=== PATIENT | male | born 1955 | race Two or more races ===

== ENCOUNTER 2018-08-01 08:23 | Day surgery (SDC) | payer MEDICARE, MEDICAID ==
[2018-08-01] VITALS (11 sets, daily range): BP systolic 118–147; BP diastolic 54–85
[~2018-08-01] VITALS: Ht 180.3 cm; Wt 104.3 kg
[2018-08-01] MEDS ORDERED: ASPIRIN81 MG ORAL (09:06)
[2018-08-01] MEDS ORDERED: OMEPRAZOLE20 M2 ORAL (09:06)
[2018-08-01] MEDS ORDERED: BENAZEPRIL HCL10 MG ORAL (09:06)
[2018-08-01] MEDS ORDERED: ATORVASTATIN CA20 MG ORAL (09:06)
[2018-08-01] MEDS ORDERED: ALLOPURINOL100 M1 ORAL (09:06)
[2018-08-01] MEDS ORDERED: AMLODIPINE BESYL5 MG ORAL (09:06)
[2018-08-01] MEDS ORDERED: ATENOLOL50 MG ORAL (09:06)
--- NOTE | 2018-08-01 09:10 | NUR ---
IV LR WAS STARTED BY JONNIE RIVERAOPS RN. NO S/S OF INFILTRATION.
[2018-08-01] MEDS ORDERED: Lidocaine 1% MPF 10mg/ml 5ml ONE (09:22)
[2018-08-01] MEDS ORDERED: fentaNYL 100 mcg/2 mL IV ONE ×2 (09:22→10:37)
[2018-08-01] MEDS ORDERED: Midazolam 2mg/2ml Inj ONE (09:22)
[2018-08-01] MEDS ORDERED: Propofol 200mg/20ml IV ONE (09:22)
[2018-08-01] MEDS ORDERED: Bupivacaine w/Epi 0.5% 30ml Vial INJ ONE (09:32)
[2018-08-01] MEDS ORDERED: Succinylcholine 20mg/ml 10ml vial ONE (09:34)
[2018-08-01] MEDS ORDERED: Zemuron 50mg/5ml Inj IV ONE (09:34)
[2018-08-01] MEDS ORDERED: Sterile Water Irrig 1000ml IRRIG ONE (10:00)
[2018-08-01] MEDS ORDERED: NS Irrig 1000ml ONE (10:00)
[2018-08-01] MEDS ORDERED: LR 1000ml ONE (10:00)
--- NOTE | 2018-08-01 10:03 | Anethesia Preoperative Eval ---
Anesthesia Pre-op PMH/ROS General Date of Evaluation: Aug 01, 2018 Time of Evaluation: 09:50 Anesthesiologist: Melany Sheth CRNA ASA Score: ASA 3 Mallampati Score Class I : Soft palate, uvula, fauces, pillars visible Class II: Soft palate, uvula, fauces visible Class III: Soft palate, base of uvula visible Class IV: Only hard plate visible Mallampati Classification: Class III Surgeon: Laine Diagnosis: LEFT hydrocele Surgical Procedure: LEFT hydrocelectomy Anesthesia History: none Family History: no anesthesia problems Allergies: Coded Allergies: No Known Allergies (Unverified , 08/01/18) Medications: see eMAR Patient NPO?: Yes NPO Date: Aug 01, 2018 NPO Time: 00:00 Past Medical History Cardiovascular: Reports: HTN, CAD, other - s/p CABG 2012; hypercholesterolemia Pulmonary: Denies: asthma, COPD, GUI, other Gastrointestinal/Genitourinary: Reports: GERD; Denies: CRI, ESRD, other Neurologic/Psychiatric: Denies: dementia, CVA, depression/anxiety, TIA, other Endocrine: Reports: other - Gout; Denies: DM, hypothyroidism, steroids HEENT: Denies: cataract (L), cataract (R), glaucoma, EKUK (L), EKUK (R), other Hematology/Immune: Denies: anemia, DVT, bleeding disorder, other Musculoskeletal/Integumentary: Denies: OA, RA, DJD, DDD, edema, other Other: obesity PMH Narrative: as above PSxH Narrative: angioplasty, CABG Anesthesia Pre-op Phys. Exam Physician Exam Last Vital Signs Date Time Temp Pulse Resp B/P (MAP) Pulse Ox O2 Delivery O2 Flow Rate FiO2 08/01/18 09:23 97.9 52 20 147/85 97 Room Air Constitutional: NAD, other - morbidly obese Neurologic: CN 2-12 intact Cardiovascular: RRR Respiratory: CTA Gastrointestinal: S/NT/ND Airway Exam Mallampati Score: Class III MO: full Neck: short thick neck TMD: > 3 FB ROM: full Teeth: missing Dentures: no upper, no lower Anesthesia Pre-op A/P Labs reviewed, see chart Studies Pre-op Studies: EKG - SR, RIGHT precordial repolarization, LV ishemia, CXR - (B ) bases atelectic, mild cardiomegaly, sternal wires Risk Assessment & Plan Assessment: ASA 3, ok to proceed Plan: GETA Status Change Before Surgery: No Pre-Antibiotics Drug: Melany Doe CRNA Aug 01, 2018 10:03
[2018-08-01] MEDS ORDERED: NS Irrig 1000ml IRRIG ONE (10:11)
--- NOTE | 2018-08-01 10:33 | Pre-Procedure Note/Attestation ---
Pre-Procedure Note/Attestation Complete Prior to Procedure Planned Procedure: left Procedure Narrative: Left Hydrocelectomy Indications for Procedure Pre-Operative Diagnosis: left hydrocele Attestation I attest that I discussed the nature of the procedure; its benefits; risks and complications; and alternatives (and the risks and benefits of such alternatives ), prior to the procedure, with the patient (or the patient's legal school admissions representative). I attest that, if there was a reasonable possibility of needing a blood transfusion, the patient (or the patient's legal school admissions representative) was given the [facility] standardized written summary, pursuant to the Deejay Miky Blood Safety Act ([place] Health and Safety Code # 1645, as amended). I attest that I re-evaluated the patient just prior to the surgery and that there has been no change in the patient's H&P, except as documented below: Kranthi Jang MD Aug 01, 2018 10:33
[2018-08-01] MEDS ORDERED: Hydromorphone 0.5mg/0.5ml inj IVP PRN (10:45)
[2018-08-01] MEDS ORDERED: Neostigmine 1mg/ml 10ml Inj ONE (11:03)
[2018-08-01] MEDS ORDERED: Glycopyrrolate 0.2mg/ml 1ml Vial ONE ×2 (11:03→11:09)
[2018-08-01] MEDS ORDERED: Ketorolac 30mg Inj ONE (11:09)
[2018-08-01] MEDS ORDERED: Tylenol #3 tab (300mg/30mg) ORAL PRN (11:30)
[2018-08-01] MEDS ORDERED: HYDROmorphone 1mg/ml Carpuject SUBQ PRN (11:30)
[2018-08-01] MEDS ORDERED: Norco 5mg/325mg tab ORAL PRN (11:30)
--- NOTE | 2018-08-01 11:30 | Brief Operative Note ---
Immediate Post Operative Note Operative Note Pre-op Diagnosis: left hydrocele Procedure: left hydrocelectomy Post-op Diagnosis: same Post-op Diagnosis: same as pre-op Surgeon: Mitul Jang Anesthesia: general Specimen: none Complications: none Condition: stable Fluids: 500 Estimated Blood Loss: minimal Implant(s) used?: No Kranthi Jang MD Aug 01, 2018 11:30
--- NOTE | 2018-08-01 11:37 | Immediate Post-Op Evaluation ---
Immediate Post-Op Evalulation Immediate Post-Op Evalulation Procedure: LEFT hydrocelectomy Date of Evaluation: Aug 01, 2018 Time of Evaluation: 11:31 IV Fluids: LR 1200 ml Estimated Blood Loss: 10 Blood Pressure Systolic: 135 Blood Pressure Diastolic: 75 Pulse Rate: 87 Respiratory Rate: 13 O2 Sat by Pulse Oximetry: 100 Temperature (Fahrenheit): 98.7 Pain Score (1-10): 0 Nausea: No Vomiting: No Complications none Patient Status: awake, reacts, patent, extubated Hydration Status: adequate Drug: cefazolin 2 gm IV Given Within 1 Hr of Incision: Yes Time Given: 10:30 Melany Sheth CRNA Aug 01, 2018 11:37
--- NOTE | 2018-08-01 13:23 | 48 Hour Post Anesthesia Eval ---
Post Anesthesia Evaluation Procedure: LEFT hydrocelectomy Date of Evaluation: Aug 01, 2018 Time of Evaluation: 13:22 Blood Pressure Systolic: 127 0: 73 Pulse Rate: 60 Respiratory Rate: 17 Temperature (Fahrenheit): 97.4 O2 Sat by Pulse Oximetry: 95 Airway: patent Nausea: No Vomiting: No Pain Intensity: 2 Hydration Status: adequate Cardiopulmonary Status: stable Follow-up Care/Observations: per urology Post-Anesthesia Complications: none Follow-up care needed: ready to discharge Melany Sheth CRNA Aug 01, 2018 13:23
[2018-08-01] MEDS ORDERED: D5 1/2NS 1,000 ML IV SCH (15:00)
--- NOTE | 2018-08-02 18:15 | Operative Note - Dictated ---
DATE OF OPERATION: 08/01/2018 SURGEON: Kranthi Jang M.D. PREOPERATIVE DIAGNOSIS: Left hydrocele. POSTOPERATIVE DIAGNOSIS: Left hydrocele. OPERATION: Hydrocelectomy. ANESTHESIA: General. FINDINGS: Left hydrocele. INDICATIONS FOR SURGERY: The patient had large left hydrocele. Treatment options were explained to him. He signed a consent. DESCRIPTION OF OPERATION: He was brought to the operating room, placed in supine position, prepped and draped in standard fashion. Under general anesthesia, standard hydrocelectomy was performed with 3 cm incision and sutured with 4-0 chromic sutures. Multiple layers for the skin. The patient tolerated the procedure well. . Kranthi Jang M.D. DR: STEFAN JOB#: [id number] CC:
== END 2018-08-01 14:00 | disposition home or self-care (01) ==
LOC: SUR 08:23
DX: N43.2 Other hydrocele (principal); I10 Essential (primary) hypertension; I25.10 Atherosclerotic heart disease of native coronary artery without angina pectoris; Z95.1 Presence of aortocoronary bypass graft; E78.00 Pure hypercholesterolemia, unspecified; K21.9 Gastro-esophageal reflux disease without esophagitis; M10.9 Gout, unspecified; E66.9 Obesity, unspecified
CPT/HCPCS: 55040; J0330; J0690; J1885; J2250; J2405; J2704; J2710; J3010; 94003; 94150